=== PATIENT | female | born 1990 ===

== ENCOUNTER 2019-02-22 13:02 | Emergency (ER) | payer MEDICAID, OTHER ==
[2019-02-22 13:05] VITALS: O2SAT 99
[2019-02-22 13:06] VITALS: BMI 26.7
[2019-02-22] MEDS ORDERED: Lidocaine 5% Patch TD STA (13:19)
[2019-02-22] MEDS ORDERED: Sodium Chloride 0.9% 1,000 ML IV STA (13:24)
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
[2019-02-22 13:58] LABS: BASO % 0.7 % (0.0-2.0); EOS # 0.2 K/uL (0.0-0.7); EOS % 3.9 % (0.0-4.0); HEMOGLOBIN 13.1 g/dL (12.0-16.0); LYMPH # 2.1 K/uL (1.0-4.3); LYMPH % 34.4 % (20.0-40.0); MEAN CELL VOLUME 85.3 fl (81.0-99.0); MEAN CORPUSCULAR HEMOGLOBIN 29.3 pg (27.0-31.0); MEAN CORPUSCULAR HGB CONC 34.3 g/dL (33.0-37.0); MEAN PLATELET VOLUME 7.9 fl (7.2-11.7); MONO # 0.4 K/uL (0.0-0.8); MONO % 7.2 % (0.0-10.0); NEUT # 3.2 K/uL (1.8-7.0); NEUT % 53.8 % (50.0-75.0); RBC 4.47 Mil/uL (3.80-5.20); RED CELL DISTRIBUTION WIDTH 12.9 % (11.5-14.5)
[2019-02-22 14:08] LABS: SQUAMOUS EPITHIAL 7 /hpf (0-5); URINE BACTERIA RARE (<OCC); URINE BILIRUBIN NEGATIVE (NEGATIVE); URINE BLOOD NEGATIVE (NEGATIVE); URINE CLARITY CLEAR (Clear); URINE COLOR COLORLESS (YELLOW); URINE GLUCOSE (UA) NEG (NEGATIVE); URINE LEUKOCYTE ESTERASE NEG Leu/uL (Negative); URINE PROTEIN NEGATIVE (NEGATIVE); URINE UROBILINOGEN 0.2-1.0 mg/dL (0.2-1.0)
[2019-02-22 14:10] LABS: ALB/GLOB RATIO 1.3 (1.0-2.1); ALBUMIN 4.6 g/dL (3.5-5.0); ALT/SGPT 36 U/L (9-52); AST/SGOT 21 U/L (14-36); BLOOD UREA NITROGEN 12 mg/dl (7-17); CALCIUM 9.5 mg/dL (8.4-10.2); GFR NON-AFRICAN AMERICAN > 60
[2019-02-22] MEDS ORDERED: Lidocaine 5% Patch TD ONE (14:21)
[2019-02-22] MEDS ORDERED: Iohexol 300 100 ML IJ ONE (14:30)
[2019-02-22] MEDS ORDERED: Sodium Chloride 0.9% 100 ML ONE (14:31)
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
--- NOTE | 2019-02-22 17:19 | US ---
Date of service: 02/22/2019 HISTORY: L sided pelvic pain COMPARISON: None available. TECHNIQUE: Transvaginal pelvic ultrasound was performed with longitudinal and transverse images submitted for interpretation. FINDINGS: UTERUS: Measures 10.2 x 5.9 x 4.5 cm. Normal in size and appearance. No fibroid or other mass lesion seen. ENDOMETRIUM: Measures 6.7 mm in diameter. Unremarkable. CERVIX: No cervical abnormality identified. RIGHT OVARY: Measures 3.7 x 3.1 x 2.5 cm. No solid mass. Normal flow. LEFT OVARY: Measures 2.3 x 3.0 x 2.7 cm. No solid mass. Normal flow. FREE FLUID: No significant free fluid noted. OTHER FINDINGS: None. IMPRESSION: Unremarkable pelvic ultrasound.
[2019-02-22 18:17] VITALS: BP 119/75; PULSE 88; RESP 18; TEMP 97.7
== END 2019-02-22 18:04 | disposition home or self-care (01) ==
LOC: H.ER 13:02
DX: M54.5 Low back pain (principal); R10.9 Unspecified abdominal pain; V44.5XXA Car driver injured in collision with heavy transport vehicle or bus in traffic accident, initial encounter
CPT/HCPCS: 72100; 74177; 76830; 80053; 81003; 81025; 85025; 86850; 86900; 96361; 96374; 99284; J1885; J7030; Q9967